=== PATIENT | female | born 1950 | race African-American/Black ===

== ENCOUNTER → 2016-08-03 | Outpatient (CLI) | payer MEDICARE, BC ==
[2014-05-15 13:00] VITALS: BP 145/105
[~2016-08-03] MED LIST: ASPI325T4 PO; CLOP75TA PO; CRESTOR20 MG PO; FLUT16SP2 NS; LOSA25TA4 PO; METO25TA4 PO; PROAIR HFA8.5 GM IH
--- NOTE | 2016-08-03 14:25 | RAD ---
DATE: 08/03/2016 EXAM: DIGITAL SCREEN BILAT W/CAD HISTORY: Screening. COMPARISON: None. This is a new baseline exam This study was interpreted with the benefit of Computerized Aided Detection (CAD). FINDINGS: The breast parenchyma shows scattered fibroglandular densities. Breast parenchyma level B. There is no dominant mass in either breast. There are benign-appearing calcifications in both breasts left more so than right. IMPRESSION: Benign findings BI-RADS CATEGORY: 2 BENIGN FINDING(S) RECOMMENDED FOLLOW-UP: 12M 12 MONTH FOLLOW-UP PQRS compliance statement: Patient information was entered into a reminder system with a target due date 08/03/2017 for the next mammogram. Mammography is a sensitive method for finding small breast cancers, but it does not detect them all and is not a substitute for careful clinical examination. A negative mammogram does not negate a clinically suspicious finding and should not result in delay in biopsying a clinically suspicious abnormality. "Our facility is accredited by the [employer] Mammography [employer]."
== END | disposition home or self-care (01) ==
LOC: MAMMO 13:02
PROVIDERS: ATTEND Family Medicine
DX: Z12.31 Encounter for screening mammogram for malignant neoplasm of breast (principal)
CPT/HCPCS: G0202; 77067

== ENCOUNTER → 2017-09-29 | Outpatient (CLI) | payer MEDICARE, BC | END | disposition home or self-care (01) | LOC: KCIC 10:34 | DX: M17.0 Bilateral primary osteoarthritis of knee (principal) | CPT/HCPCS: 73562 ==

== ENCOUNTER → 2018-08-29 | Outpatient (CLI) | payer BC, MEDICARE ==
[2014-05-15 13:00] VITALS: BP 145/105
[~2018-08-29] MED LIST changes: +ALBU2.5V8 IH; -ASPI325T4 PO; +ASPI325T8 PO; -LOSA25TA4 PO; +LOSA25TA54 PO; -PROAIR HFA8.5 GM IH
--- NOTE | 2018-08-29 14:15 | KCIC ---
AP standing knees, 08/29/2018: HISTORY: Pain, degenerative joint disease A single AP standing view of the knees was obtained as requested. There is severe narrowing of the medial compartment of the left knee joint and to a lesser degree on the right. There is moderate marginal spurring. Prominent degenerative-type cysts are seen in the medial femoral condyle and medial tibial plateau on the left. There is slight lateral subluxation of the tibia relative to the distal femur on both sides. No fracture is identified on this limited exam. Similar findings were evident on the study of 09/29/2017. Electronically signed by: Omari Carrillo MD (08/29/2018 2:11 PM) [facility]
== END | disposition home or self-care (01) ==
LOC: KCIC 13:27
PROVIDERS: ATTEND Physical Medicine & Rehabilitation
DX: M24.372 Pathological dislocation of left ankle, not elsewhere classified (principal); M24.371 Pathological dislocation of right ankle, not elsewhere classified; M17.0 Bilateral primary osteoarthritis of knee; M25.862 Other specified joint disorders, left knee
CPT/HCPCS: 73565

== ENCOUNTER → 2020-03-13 | Outpatient (CLI) | payer MEDICARE ==
[2014-05-15 13:00] VITALS: BP 145/105
--- NOTE | 2020-03-13 09:12 | KCIC ---
EXAM: Dual energy x-ray absorptiometry (DEXA). HISTORY: Postmenopausal. COMPARISON: None available. TECHNIQUE: Dual energy x-ray absorptiometry of the lumbar spine and left hip was performed. Calculation of bone mineral density based on standard deviations above or below the expected young adult normal value (T-score) was completed. FINDINGS: The average bone mineral density in the 1st through 4th lumbar vertebrae is 1.338 g/cmxcm, corresponding with a T-score of 2.6. The average total bone mineral density in the left hip is 1.090 g/cmxcm, corresponding with a T-score of 1.2. IMPRESSION: Findings are within the range of normal bone density with relation of the spine and left hip. Note: Definitions established by the World Health Organization: 1. Normal: T-score is -1.0 or above. 2. Osteopenia: T-score is between -1.0 and -2.5 . 3. Osteoporosis: T-score is -2.5 or below. Electronically signed by: Porsha Marshall MD (03/13/2020 9:10 AM) [facility]
--- NOTE | 2020-03-13 11:10 | KCIC ---
Bilateral digital screening mammograms with 3-D tomosynthesis: Reason for examination: Routine screening. Comparison is made to previous study dated 08/03/2016. Bilateral mammograms in CC and oblique projections were obtained with 2-D imaging and 3-D tomosynthesis imaging on a Siemens Inspiration unit and reviewed on the workstation. Interpretation was made with the benefit of CAD. The skin and nipples show no abnormalities. No abnormal axillary lymph nodes are seen. The breast parenchyma is predominantly fatty. (Breast density: Category A.) There are no dominant masses, suspicious calcifications or architectural distortion. Diffusely scattered benign-appearing calcifications are present. Impression: No evidence of malignancy. Recommend routine screening. BI-RAD Category 2: Benign. "Our facility is accredited by the [employer] Mammography [employer]." This patient's information has been entered into a reminder system for the patient to be notified with the results of her examination and a target date for the next mammogram. Electronically signed by: Fang Aburto MD (03/13/2020 11:07 AM) [id number]
== END ==
LOC: KCIC MAMMO 07:52
PROVIDERS: ATTEND Family Medicine
DX: Z12.31 Encounter for screening mammogram for malignant neoplasm of breast (principal); Z78.0 Asymptomatic menopausal state; N64.89 Other specified disorders of breast
CPT/HCPCS: 77067; 77080